=== PATIENT | male | born 1995 | race Two or more races ===

== ENCOUNTER 2020-04-05 06:25 | Emergency (ER) | payer OTHER ==
[~2020-04-05] VITALS: Ht 177.8 cm; Wt 78.0 kg
--- NOTE | 2020-04-05 06:41 | NUR ---
PT BIB [facility]. PT WENT TO [facility] BUT WAS "TOO INTOXICATED TO BE THERE", CENTER PUNCH OPERATOR WERE CALLED AND PT REPORTEDLY BECAME COMBATIVE, [facility] THEN WAS CALLED AND PT WAS BROUGHT TO [facility] [place] ED WITH A GCS OF 8. PT RESTING IN GURNEY, NAD, WITHDRAWS TO PAIN, RESP WNL, SKIN COLOR WNL WARM AND DRY, CHANGED INTO GOWN. WCTM. ON MONITOR
--- NOTE | 2020-04-05 06:59 | NUR ---
bedside report to Juan HESS. pt care transferred at this point.
[2020-04-05] MEDS ORDERED: SODIUM CHLORIDE 0.9% 1,000ML IVBOLUS ONE (07:00)
--- NOTE | 2020-04-05 07:03 | NUR ---
I AM ASSUMING CARE OF THIS PT FROM SUGE[facility] (DESHAWN) AT THIS TIME. SBAR REPORT WAS EXCHANGED AT THE BEDSIDE.
[2020-04-05 07:42] LABS: ALANINE AMINOTRANSFERASE 32 U/L (12-78); ALBUMIN 3.3 g/dL (3.4-5.0); ANION GAP 9 mmol/L (5-15); CALCIUM 6.9 mg/dL (8.5-10.1); CHLORIDE 117 mmol/L (98-107); CREATININE 0.87 mg/dL (0.7-1.3)
[2020-04-05 07:45] LABS: SALICYLATE LEVEL < 1.7 mg/dL (2.8-20.0)
[2020-04-05 07:53] LABS: ALKALINE PHOSPHATASE 110 U/L (45-117); BILIRUBIN,TOTAL 0.5 mg/dL (0.2-1.0); TOTAL PROTEIN 6.8 g/dL (6.4-8.2)
--- NOTE | 2020-04-05 09:28 | NUR ---
pt has been sleeping sonorously since my arrival today. his vs are stable, and no supplemental o2 is necesary at this time. i will continue to monitor and treat as ordered, aS WELL PRN.
--- NOTE | 2020-04-05 11:04 | NUR ---
PT STOOD ST THE SIDE OF THE BED TO URINATE. HE WAS UNSTEADY ON HIS FEET, AND UNABLE TO MAINTAIN ALERTNESS. HE IS NOW RETURNED TO BED, AND IS SLEEPING SONOROUSLY. PIV REMOVED, WELL NPA.
--- NOTE | 2020-04-05 12:04 | NUR ---
NO CHANGES SINCE MY LAST ASSESSMENT. PT IS DIFFICULT TO AROUSE. I WILL ALLOW HIM TO METABOLIZE HIS ETOH FURTHER PRIOR TO D/C.
--- NOTE | 2020-04-05 13:01 | NUR ---
MARITZA (RN) IS ASSUMING CARE OF THIS PT AT THIS TIME. SBAR REPORT WAS EXCHANGED AT THE BEDSIDE.
--- NOTE | 2020-04-05 13:10 | NUR ---
BEDSIDE REPORT FROM TAWNY RN, PT SLEEPING IN [facility]. ATTEMPTED TO AROUSE PT, PT GROANED AND DID NOT WAKE UP. FIELD MARKETING SPECIALIST NOTIFIED.
== END 2020-04-12 13:56 | disposition home or self-care (01) ==
LOC: MERGE 12:17 → ED 12:17 → EDBD 12:17 → ED 14:46
DX: F10.229 Alcohol dependence with intoxication, unspecified (principal); G92 Toxic encephalopathy; R41.82 Altered mental status, unspecified; R00.0 Tachycardia, unspecified; Y90.0 Blood alcohol level of less than 20 mg/100 ml
CPT/HCPCS: 36415; 80053; 80307; 93005; 99284; J7030